=== PATIENT | female | born 1960 | race Caucasian/White ===

== ENCOUNTER 2020-07-01 18:09 | Inpatient (IN) | payer MEDICARE ==
[~2020-07-01] VITALS: Ht 162.6 cm; Wt 47.6 kg
[2020-07-01] MEDS ORDERED: OXYC20TA42 PO (19:24)
[2020-07-01] MEDS ORDERED: MORP60CA19 PO (19:24)
[2020-07-01] MEDS ORDERED: TIZA4TAB5 PO (19:24)
[2020-07-01] MEDS ORDERED: BUPR-53 PO (19:24)
[2020-07-01] MEDS ORDERED: DIAZ10TA4 PO (19:24)
[2020-07-01] MEDS ORDERED: TRAZ-257 PO (19:24)
[2020-07-01] MEDS ORDERED: POTASSIUM CHLORIDE 20 MEQ TAB.PRT.SR ONE (20:28)
[2020-07-01] MEDS ORDERED: POTASSIUM CHLORIDE 20 MEQ TAB.PRT.SR PO ONE (20:30)
--- NOTE | 2020-07-01 20:51 | NUR ---
Pt. admitted to MHU , under care of Dr. HERRERA Belongs List completed. MRSA SWAB DONE.
[2020-07-01 21:22] VITALS: BP 114/69
[2020-07-01] MEDS ORDERED: MAG HYDROX/AL HYDROX/SIMETH 30 ML LIQUID UDC PO PRN (21:45)
[2020-07-01] MEDS ORDERED: MAGNESIUM HYDROXIDE 30 ML LIQUID UDC PO PRN (21:45)
--- NOTE | 2020-07-01 22:15 | NUR ---
GPS: Admitted to unit earlier a 60 yr.old female under the care of / who was medically cleared in our E.R. Pt.is on a 72 hour hold for DTS/GD. Pt.is alert x1. Confused,disoriented and disorganized. Uncooperative,anxious,irritable at times during interview. Unable to state reason for her admission to the unit. Denies SI/wanting to hurt self when asked by staff. Refused to be interviewed more by staff. Pt's rights handbook and advisement given to pt. Unit rules explained. Oriented to unit/surroundings. Safe environment provided. Pt's sister aware of pt's admission to the unit. made aware. Will continue to monitor behavior.
[2020-07-01] MEDS: LORAZEPAM 1 MG TABLET PO PRN (22:40)
--- NOTE | 2020-07-01 22:40 | NUR ---
GPS: Pt.is anxious,restless ,agitated when approached and when being re-directed. Ambulating along the hallways naked. Confused,disoriented and disorganized. Poor insight to present situation. Ativan 1mg given PO. Will monitor effectiveness. Safe environment provided.
[2020-07-01] MEDS: TEMAZEPAM 7.5 MG CAPSULE PO PRN (23:55)
[2020-07-02] MEDS: LORAZEPAM 1 MG TABLET PO PRN ×3 (04:10→20:50)
--- NOTE | 2020-07-02 06:31 | NUR ---
GPS: Pt.slept for only 2 hrs.last night. Was anxious,restless at times,confused,disoriented and with mood swings. Frequent re-direction and re-assurance provided by staff. Continues to deny SI. Safe environment provided. Fall precautions observed.
[2020-07-02 07:30] VITALS: BP 126/72
[2020-07-02 07:37] LABS: CREATININE 1.2 mg/dL (0.6-1.3)
[2020-07-02 07:41] LABS: POTASSIUM 2.6 mmol/L (3.5-5.1)
--- NOTE | 2020-07-02 08:33 | NUR ---
RACHEL Firearms Report: Developmental Training Counselor completed and submitted a [employer] firearms report for 5150 grave disability certification. A copy of report has been placed in patient chart.
[2020-07-02] MEDS ORDERED: POTASSIUM CHLORIDE 20 MEQ TAB.PRT.SR PO ONE ×2 (09:45→15:00)
--- NOTE | 2020-07-02 10:41 | NUR ---
SW Initial Discharge Plan: Patient [place] [address] [place] [address]; ([phone]). Patient's sister Sidra ([phone]) is involved in patient's care. This SW gathered collateral from sister and she stated patient might need a nursing facility depending on how stable she will be. This SW will touch base with sister when it is closer to patient's discharge. This SW will work with the MD, treatment team, and family to help coordinate proper discharge.
--- NOTE | 2020-07-02 10:41 | NUR ---
SW Family Contact: Patient's sister Sidra ([phone]) is involved in patient's care. This SW gathered collateral from sister and she stated patient might need a nursing facility depending on how stable she will be. This SW will touch base with sister when it is closer to patient's discharge. Patient's sister requested for neuro consult. This SW advised charge nurse Brown.
--- NOTE | 2020-07-02 10:41 | NUR ---
Substance Abuse Intervention: Patient was provided with a brief substance abuse intervention and referred to [facility] ([phone]), [facility] ([phone]), and [facility] ([phone]).
--- NOTE | 2020-07-02 11:01 | NUR ---
Police Station: This SW contacted [place] [employer] ([phone]) and spoke with pneumatic tool operator [phone] who stated that "they cannot remove the guns from the house without patient being present". SW informed that patient is on a psychiatric hold and cannot return home if there are weapons at home and would need an officer to conduct a wellness check and remove the guns from the house. She expressed that an officer will contact this SW to further discuss.
--- NOTE | 2020-07-02 11:33 | NUR ---
Police Station: This SW a phone call from sergeant Ray from [place] [employer] ([phone]) who stated that they are unable to remove guns from the patient's house and would require a consent. requested for this SW to ask for patient's consent to go inside her house and remove guns.
--- NOTE | 2020-07-02 11:35 | NUR ---
SW Note: This SW met with patient and asked if she has guns at home. Patient became tearful and nodded her head. Patient did not further verbalize any information or give any consent for the officer to remove the guns.
--- NOTE | 2020-07-02 11:35 | NUR ---
Police Station: This SW contacted sergeant Ray from [place] [employer] ([phone]) and reported that patient became tearful and nodded her head when this SW asked if she has guns at home. Patient did not give consent to go inside her house to remove any possible guns. Addendum: 07/02/20 at 1137 by RACHEL DUMONT stated that he would have to further discuss with his team on what the next step will be. He stated that he will contact this SW.
--- NOTE | 2020-07-02 12:51 | NUR ---
Police Station: This SW received a phone call from sergeant Ray from [place] [employer] ([phone]) who stated that he went to patient's house and patient's son happened to be in the house. did wellness check and stated he found a safe with a combination code securing the weapons inside. Son stated he does not know the combination and only patient's brother Shant Brunson knows the combination and will be coming down from the [place] to remove the safe with the weapons and provide safe environment for pt if she were to return back home. stated they will be in contact with the brother.
[2020-07-02] MEDS: ASPIRIN 81 MG TAB.CHEW PO SCH (14:00)
[2020-07-02] MEDS ORDERED: PSYLLIUM SEED PACKET PO SCH ×2 (14:00→14:36)
[2020-07-02] MEDS: PSYLLIUM SEED PACKET PO SCH (14:37)
--- NOTE | 2020-07-02 15:00 | NUR ---
While assisted the patient in the bathroom, it was noted that patient has a significant rectal prolapse. Pt stood up and it was observed hanging from her anus (a size of a large apple). No bleeding was noted. The prolapsed part was able to be retracted after.
[2020-07-02] MEDS: Z GUARD REMEDY PASTE 57 GM TUBE TOP PRN (15:40)
[2020-07-02 16:07] VITALS: BP 130/73
[2020-07-02] MEDS ORDERED: LORAZEPAM 2 MG/1 ML VIAL IM ONE (16:15)
[2020-07-02] MEDS: OLANZAPINE 5 MG TABLET PO SCH (20:00)
[2020-07-02] MEDS: MORPHINE SULFATE SR 30 MG TABLET.SA PO SCH (20:23)
[2020-07-02] MEDS: ATORVASTATIN 20 MG TABLET PO SCH (20:23)
--- NOTE | 2020-07-02 20:25 | NUR ---
GPS: Pt.alert to self only. Confused,disoriented and disorganized. Has episodes of being selectively mute. Talking non-sensical. Refused bedtime meds.despite explanation of risks vs benefits x3. Safe environment provided. Observed to be disrobing self. Easily irritable when being re-directed. Labile mood. Will continue to monitor.
[2020-07-02 20:29] VITALS: BP 135/81
--- NOTE | 2020-07-02 20:50 | NUR ---
GPS: [place] someone screaming inside rm #[id number]. Found pt.standing next to her roommate and was trying to pull roommate up from bed. Pt.unable to explain what had happened due to confusion. Per roommate,pt.was making her get up so they can both get to the door. No injuries were sustained by both pt's. Both deny pain at this time. Pt.was re-directed and was removed from her room and away from roommate for safety. Pt.now sitting on a gerichair next to nurses station for close monitoring. Ativan 1mg PO given. Will monitor.
[2020-07-02] MEDS ORDERED: CLOZAPINE 100 MG TABLET PO SCH (21:00)
[2020-07-02] MEDS: TEMAZEPAM 7.5 MG CAPSULE PO PRN (22:49)
--- NOTE | 2020-07-03 06:19 | NUR ---
GPS: Pt.slept for 6.45 last night. Now awake in bed and still resting. Re-directed prn. Safe environment provided. Reality re-orientation provided prn.
[2020-07-03 07:30] VITALS: BP 134/78
[2020-07-03] MEDS ORDERED: GABAPENTIN 100 MG CAPSULE PO SCH (09:00)
[2020-07-03] MEDS ORDERED: CLOZAPINE 100 MG TABLET PO SCH (09:00)
[2020-07-03] MEDS: MORPHINE SULFATE SR 30 MG TABLET.SA PO SCH ×2 (10:45→20:16)
[2020-07-03] MEDS: DOCUSATE SODIUM 250 MG CAPSULE PO SCH (10:45)
[2020-07-03] MEDS: OLANZAPINE 5 MG TABLET PO SCH ×2 (10:45→17:44)
[2020-07-03] MEDS: ASPIRIN 81 MG TAB.CHEW PO SCH (10:49)
[2020-07-03] MEDS: PSYLLIUM SEED PACKET PO SCH (11:28)
[2020-07-03 11:29] LABS: CREATININE 0.9 mg/dL (0.6-1.3)
[2020-07-03] MEDS ORDERED: POTASSIUM CHLORIDE 20 MEQ TAB.PRT.SR PO ONE (11:30)
--- NOTE | 2020-07-03 11:30 | NUR ---
SW Family Contact: This SW received a phone call from patient's sister Sidra ([phone]) and this SW attempted to call back, however, this SW left a voicemail. Sidra wanted updates on patient's well-being.
[2020-07-03 11:44] LABS: POTASSIUM 2.7 mmol/L (3.5-5.1)
--- NOTE | 2020-07-03 14:11 | NUR ---
SW Family Contact: This SW spoke with patient's sister Sidra ([phone]) and wanted an update on patient's well being. This SW stated that patient has been disorganized and disoriented. Patient's sister requested to speak to Dr. Fisher. This SW notified Dr. Fisher.
--- NOTE | 2020-07-03 14:21 | NUR ---
SW Individual Note: sample shoe inspector and reworker met with patient for brief counseling and assessed for level of suicidality. sample shoe inspector and reworker assessed for suicidal thoughts, patient denied suicidal thoughts. Patient denies current SI. Patient reported that in the past couple of days he was hearing "voices that were telling me to hurt myself". Patient reported that sometimes the voices are "strong". This SW assessed for patient's safety. This SW actively listened and provided emotional support. Addendum: 07/03/20 at 1423 by RACHEL DUMONT Wrong patient
--- NOTE | 2020-07-03 14:25 | NUR ---
RACHEL Individual Note: odd bundle worker met with patient for brief counseling and assessed for level of suicidality. odd bundle worker assessed for suicidal thoughts, patient denied suicidal thoughts. Patient appeared disorganized and disoriented. Patient unable to have proper conversation due to confusion. SW unable to conduct therapy at this time.
[2020-07-03 16:53] VITALS: BP 131/89
[2020-07-03] MEDS: ENSURE ENLIVE (VAN) 240 ML LIQUID PO SCH (17:00)
[2020-07-03 19:59] VITALS: BP 155/87
[2020-07-03] MEDS: ATORVASTATIN 20 MG TABLET PO SCH (20:16)
[2020-07-03] MEDS: Z GUARD REMEDY PASTE 57 GM TUBE TOP PRN (20:17)
[2020-07-03 20:45] VITALS: BP 136/78
[2020-07-03] MEDS: TEMAZEPAM 7.5 MG CAPSULE PO PRN (22:31)
--- NOTE | 2020-07-04 06:16 | NUR ---
GPS: Remain confused and disoriented. need frequent redirection. Pt.slept for 4 hrs through the night after restoril 7.5 mg po given. Now awake in bed and still resting. Safe environment provided. Reality re-orientation provided. continue plan of care.
[2020-07-04 07:30] VITALS: BP 117/55
[2020-07-04] MEDS: ENSURE ENLIVE (VAN) 240 ML LIQUID PO SCH ×3 (08:24→16:33)
[2020-07-04] MEDS: OLANZAPINE 5 MG TABLET PO SCH ×3 (08:24→16:33)
[2020-07-04] MEDS: ASPIRIN 81 MG TAB.CHEW PO SCH (08:29)
[2020-07-04] MEDS: DOCUSATE SODIUM 250 MG CAPSULE PO SCH (08:29)
[2020-07-04] MEDS: MORPHINE SULFATE SR 30 MG TABLET.SA PO SCH ×2 (08:29→20:30)
[2020-07-04] MEDS: PSYLLIUM SEED PACKET PO SCH (11:00)
[2020-07-04] MEDS: NUTRISOURCE FIBER 4 GM PACKET PO SCH (16:34)
[2020-07-04 16:49] VITALS: BP 147/79
[2020-07-04 20:02] VITALS: BP 148/73
[2020-07-04] MEDS: ATORVASTATIN 20 MG TABLET PO SCH (20:30)
--- NOTE | 2020-07-05 02:53 | NUR ---
Received patient in her bed. Totally disoriented and talking nonsensical. Unable to have any meaningful conversation, continually swearing, fidgeting and taking cloths off. Patient refuses to take all of the routine medications or PRN medications. Damper Maker offered patient food , noticing that her intake for the day was 0%, but that too was refused. Patient has not slept so far and is in a herrera chair at the station being monitored for safety. Damper Maker will continue to encourage compliance and keep patient safe.
--- NOTE | 2020-07-05 06:19 | NUR ---
Patient refusing to sleep in the bed. Total sleep hours last night were 3.45. Patient was restless, confused and non compliant. Continuing to encourage and educate patient on the benefits of compliance and treatment.Reorientation provided during the night and offering of food and fluids which patient continues to decline. Will endorse to on coming shift.
[2020-07-05 07:30] VITALS: BP 149/82
--- NOTE | 2020-07-05 07:30 | NUR ---
Received patient on chair being monitored for safety. patient disoriented and speaking to self. unable to hold conversation. no signs of acute distress. will continue to monitor.
[2020-07-05 07:50] LABS: CREATININE 0.9 mg/dL (0.6-1.3)
[2020-07-05] MEDS: ASPIRIN 81 MG TAB.CHEW PO SCH (08:57)
[2020-07-05] MEDS: DOCUSATE SODIUM 250 MG CAPSULE PO SCH (08:57)
[2020-07-05] MEDS: ENSURE ENLIVE (VAN) 240 ML LIQUID PO SCH ×3 (08:57→16:41)
[2020-07-05] MEDS: OLANZAPINE 5 MG TABLET PO SCH ×2 (08:58→16:41)
[2020-07-05] MEDS: NUTRISOURCE FIBER 4 GM PACKET PO SCH ×3 (08:58→16:41)
[2020-07-05] MEDS: MORPHINE SULFATE SR 30 MG TABLET.SA PO SCH ×2 (08:58→20:07)
[2020-07-05] MEDS ORDERED: LORAZEPAM 2 MG/1 ML VIAL IM ONE (10:45)
[2020-07-05] MEDS ORDERED: OLANZAPINE 10 MG VIAL IM ONE (10:45)
--- NOTE | 2020-07-05 10:45 | NUR ---
Patient attempted to climb out of gerichair. Patient confused and talking to herself and cursing. Bookstore Manager tried redirecting patient but patient is nondirectable. Patient tried kicking staff when helping patient sit back down. Patient sat on the floor. Patient tried to swing at staff members. 4 person assist needed to get patient back to chair. Dr. Boothe contacted for orders. Dr. Boothe ordered one time dose of Zyprexa 0.5mg IM and one time dose of Ativan 0.5mg IM. Order carried out. Patient tolerating well. Will continue to monitor.
[2020-07-05] MEDS: PSYLLIUM SEED PACKET PO SCH (11:00)
--- NOTE | 2020-07-05 18:53 | NUR ---
Patient awake resting on chair. No signs of acute distress.Patient denies any pain/ discomfort at this time. After speaking with Dr. Boothe, patient agreed to take scheduled medications. Patient was able to have her lunch and dinner. Patient ambulated to the bathroom with assistance. Will endorse to incoming shift for continuity of care.
[2020-07-05] MEDS: ATORVASTATIN 20 MG TABLET PO SCH (20:05)
[2020-07-05 20:07] VITALS: BP 145/78
[2020-07-05] MEDS: LORAZEPAM 1 MG TABLET PO PRN (21:10)
[2020-07-05] MEDS: Z GUARD REMEDY PASTE 57 GM TUBE TOP PRN (21:57)
--- NOTE | 2020-07-06 05:30 | NUR ---
Received patient last night in the chair, awake and alert. Apologetic for her behavior the night before and pleasant . Patient was willing to take medications willingly and actually requested them. Total sleep hours were 8.00. This am , when rounding, mortgage underwriter noticed patient sitting on the edge of the bed. Withdrawn, paranoid and delusional. This mortgage underwriter attempted to engage patient in conversation but the patient stated " I do not trust you and I do not need your help ". This behavior is a complete shift from earlier on. Reassurance provided and mortgage underwriter will continue to monitor patient for any behavior escalation, labile mood , medication compliance and for safety.
[2020-07-06 07:30] VITALS: BP 118/81
--- NOTE | 2020-07-06 07:30 | NUR ---
RECEIVED PATIENT IN HER BED SITTING AT THE EDGE STATED WANTED TO USE THE BATHROOM SO I OFFERED TO HELP HER INTO THE BATHROOM ATTEMPTED TO ASSIST HER TO STAND UP BUT SHE REFUSED STATED THAT SHE WILL GO TO THE BATHROOM WHEN EVER SHE IS READY SEEMS ORIENTED KNOWS THAT SHE IS IN [facility] BUT STILL UNSURE OF WHAT SHE WANTS OR HOW I SHOULD HELP HER SO ENCOURAGED PATIENT TO RELAX AND LET ME KNOW WHAT AND HOWB TO HELP HER.
[2020-07-06] MEDS: OLANZAPINE 5 MG TABLET PO SCH ×2 (08:28→16:27)
[2020-07-06] MEDS: ASPIRIN 81 MG TAB.CHEW PO SCH (08:28)
[2020-07-06] MEDS: DOCUSATE SODIUM 250 MG CAPSULE PO SCH (08:28)
[2020-07-06] MEDS: MORPHINE SULFATE SR 30 MG TABLET.SA PO SCH ×2 (08:37→21:15)
[2020-07-06] MEDS: ENSURE ENLIVE (VAN) 240 ML LIQUID PO SCH ×3 (09:30→16:29)
[2020-07-06] MEDS: NUTRISOURCE FIBER 4 GM PACKET PO SCH ×3 (09:30→16:30)
--- NOTE | 2020-07-06 10:30 | NUR ---
JADEN FLORES DNP HERE TO SEE PATIENT WITH NEW ORDERS AND NOTED PATIENT IN ROOM DENIES DISCOMFORTS COMPLIANT WITH MEDICATIONS AND CARE WILL CONTINUE TO PROVIDE SAFE AND THERAPEUTIC ENVIRONMENT DENIES SI QAT THIS TIME
[2020-07-06] MEDS ORDERED: ONDANSETRON HCL 4 MG TABLET PO PRN (10:45)
[2020-07-06] MEDS: PSYLLIUM SEED PACKET PO SCH (11:00)
[2020-07-06 16:00] VITALS: BP 124/72
--- NOTE | 2020-07-06 18:00 | NUR ---
DIFFICULTY GIVING PATIENT HER MEDICATION ORDERED OFFERED TO HER 3 TIMES SHE JUST STARED AT ME VERY SUSPICIOUS WITHDRAWN PARANOID AND FINALLY TOOK THE MEDICATION GARGLING WITH THE WATER CHECKED HER MOUTH FOR CHEEKING WILL CONTINUE TO OBSERVE.
--- NOTE | 2020-07-06 18:45 | NUR ---
CALLED ME INTO HER ROOM AND STATED THAT SHE WANTS TO LEAV NOTIFIED HER THAT I WILL INFORM HER DOCTOR THEN SHE STATED THAT WE ALL HERE ARE FRIENDS WITH HER NEIBOUR WHOM SHE HATES SO MUCH WHEN ASKED WHERE SHE LIVES SHE STATED [facility] PATIENT REASSURED THAT SHE IS SAFE HERE.
[2020-07-06 20:08] VITALS: BP 132/77
[2020-07-06] MEDS: LORAZEPAM 1 MG TABLET PO PRN (21:15)
[2020-07-06] MEDS: ATORVASTATIN 20 MG TABLET PO SCH (21:16)
--- NOTE | 2020-07-07 05:19 | NUR ---
At the beginning of the shift, the patient was in bed and very paranoid stating that " Everybody out there is laughing at me. I know where you live and.. you won't get away with this". This fiction and nonfiction prose writer spent a good amount of time trying to reassure patient that she is safe and that we are all here to help her. Patient continued to be suspicious, yet trusted fiction and nonfiction prose writer to fulfill her many needs ,such as a new pair of pants, underwear, water, some lip balm etc.. After that she became very labile and begun crying. This fiction and nonfiction prose writer did have difficulty trying to get the patient to take her prescribed medications, and she required plenty of encouragement, the patient did finally agreed. Total sleep hours were 7.00 . Plan is to continue to reorient and reassure the patient as needed, monitor her for safety and labile behavior, plus encourage compliance. There is no acute distress noted at this time.
[2020-07-07 07:21] LABS: BASOPHILS # (AUTO) 0.1 K/uL (0.0-8.0); BASOPHILS % (AUTO) 0.7 % (0.0-2.0); EOSINOPHILS # (AUTO) 0.1 K/uL (0.0-0.7); EOSINOPHILS % (AUTO) 0.5 % (0.0-7.0); HEMATOCRIT 40.2 % (31.2-41.9); HEMOGLOBIN 13.7 g/dL (10.9-14.3); LYMPHOCYTES # (AUTO) 3.1 K/uL (20.0-40.0); LYMPHOCYTES % (AUTO) 29.4 % (20.5-51.5); MEAN CORPUSCULAR HGB CONC 34 g/dL (32.3-35.6); MEAN CORPUSCULAR VOLUME 94.2 fL (75.5-95.3); MONOCYTES # (AUTO) 0.7 K/uL (2.0-10.0); MONOCYTES % (AUTO) 6.9 % (0.0-11.0); NEUTROPHILS # (AUTO) 6.5 K/uL (1.8-8.9); NEUTROPHILS % (AUTO) 62.5 % (38.5-71.5); PLATELET COUNT (AUTO) 360 K/uL (179-408); RED BLOOD CELL COUNT(AUTO) 4.27 MIL/uL (3.63-4.92); WHITE BLOOD COUNT (AUTO) 10.5 K/uL (3.8-11.8)
[2020-07-07 07:30] VITALS: BP 143/89
[2020-07-07 07:34] LABS: CREATININE 0.7 mg/dL (0.6-1.3); MAGNESIUM 2.3 mg/dL (1.8-2.4); PHOSPHOROUS 3.5 mg/dL (2.5-4.9)
--- NOTE | 2020-07-07 08:37 | NUR ---
SW Coordination of Care: This SW sent patient's clinicals to Bryant from [facility] ([phone]) for placement option. This SW faxed patient's clinicals. This SW sent H & P, progress notes, and medication list.
[2020-07-07] MEDS: NUTRISOURCE FIBER 4 GM PACKET PO SCH ×3 (09:00→17:00)
[2020-07-07] MEDS: MORPHINE SULFATE SR 30 MG TABLET.SA PO SCH ×3 (09:00→20:41)
[2020-07-07] MEDS: DOCUSATE SODIUM 250 MG CAPSULE PO SCH ×2 (09:00→12:01)
[2020-07-07] MEDS: ASPIRIN 81 MG TAB.CHEW PO SCH ×2 (09:00→12:01)
[2020-07-07] MEDS: OLANZAPINE 5 MG TABLET PO SCH ×4 (09:00→20:35)
[2020-07-07] MEDS: ENSURE ENLIVE (VAN) 240 ML LIQUID PO SCH ×4 (09:00→17:24)
[2020-07-07] MEDS: POTASSIUM CHLORIDE 10 MEQ TAB.PRT.SR PO SCH ×4 (09:30→17:40)
--- NOTE | 2020-07-07 10:55 | NUR ---
Court Hearing: Patient's court hearing is today and it was upheld for GD and danger to self.
[2020-07-07] MEDS: PSYLLIUM SEED PACKET PO SCH (11:00)
--- NOTE | 2020-07-07 11:02 | NUR ---
SNF Contact: This SW received a phone call from Bryant from [facility] ([phone]) who stated patient is accepted.
--- NOTE | 2020-07-07 13:38 | NUR ---
SW Individual Note: rescue worker met with patient for brief counseling and assessed for level of suicidality. rescue worker assessed for suicidal thoughts, patient denied suicidal thoughts. Patient appeared very paranoid and delusional. She was standing near her bedside and unable to maintain proper eye contact while this SW was conducting therapy. She was just stating "I know you.. you were the one that called her". Patient presented with labile mood and unable to have a proper conversation at this time.
[2020-07-07 15:23] VITALS: BP 134/83
[2020-07-07 20:01] VITALS: BP 116/76
[2020-07-07] MEDS: ATORVASTATIN 20 MG TABLET PO SCH (20:35)
[2020-07-08] MEDS: TEMAZEPAM 7.5 MG CAPSULE PO PRN (01:12)
[2020-07-08 07:30] VITALS: BP 115/84
[2020-07-08] MEDS: DOCUSATE SODIUM 250 MG CAPSULE PO SCH (09:00)
[2020-07-08] MEDS: MORPHINE SULFATE SR 30 MG TABLET.SA PO SCH ×3 (09:00→20:09)
[2020-07-08] MEDS: ASPIRIN 81 MG TAB.CHEW PO SCH ×2 (09:00→10:25)
[2020-07-08] MEDS: NUTRISOURCE FIBER 4 GM PACKET PO SCH ×3 (09:00→16:58)
[2020-07-08] MEDS: ENSURE ENLIVE (VAN) 240 ML LIQUID PO SCH ×4 (09:00→16:57)
[2020-07-08] MEDS: OLANZAPINE 5 MG TABLET PO SCH ×3 (09:00→20:08)
[2020-07-08] MEDS: PSYLLIUM SEED PACKET PO SCH (11:00)
--- NOTE | 2020-07-08 12:17 | NUR ---
RACHEL Family Contact: This SW spoke with patient's sister Sidra ([phone]) and stated patient is accepted at [facility]. Sidra would want a neuro consult. This SW advised Dr. Fisher. She would want to speak to doctor. This SW advised doctor Phillip to call her. Addendum: 07/08/20 at 1218 by RACHEL DUMONT This RACHEL notified charge nurse Delfin for Neuro Consult
--- NOTE | 2020-07-08 12:40 | NUR ---
SW Family Visit: This SW met with patient's daughter Barbara ([phone]) and discussed discharge planning. This SW advised that patient is accepted at [facility] and she was agreeable with this plan. Barbara would prefer to be the primary contact instead of sister Sidra.
--- NOTE | 2020-07-08 12:46 | NUR ---
SW Family Contact: This SW spoke with patient's sister Sidra ([phone]) and stated Barbara patient's daughter ([phone]) would want to be the primary contact and have the doctor contact her instead. Sidra was agreeable with this. This SW reported that Barbara agreed with the nursing [facility].
[2020-07-08 14:16] LABS: *BILIRUBIN,URIN NEGATIVE (NEGATIVE); *BLOOD, URINE NEGATIVE (NEGATIVE); *COLOR,URINE YELLOW (YELLOW); *KETONES,URINE NEGATIVE (NEGATIVE); *UROBILINOGEN,URINE 0.2 E.U./dl (NORMAL); LEUKOCYTE ESTERASE ,URINE 1+ (NEGATIVE); NITRITE, URINE NEGATIVE (NEGATIVE); PH,URINE 8.5 (5.0-8.0); UGLUCOSE NEGATIVE (NEGATIVE)
[2020-07-08 14:23] LABS: *CLARITY,URINE HAZY (CLEAR); RBC,URINE 0-3 /HPF (0-3)
[2020-07-08 14:24] LABS: BACTERIA,URINE FEW /HPF (NONE SEEN); SQUAMOUS EPITHELIAL CELL,UR MODERATE /HPF (NONE SEEN); WBC,URINE 20-50 /HPF (0-3)
[2020-07-08 15:25] VITALS: BP 128/63
[2020-07-08] MEDS: AMOXICILLIN-CLAVUL 500-125MG TABLET PO SCH (20:08)
[2020-07-08] MEDS: ATORVASTATIN 20 MG TABLET PO SCH (20:08)
[2020-07-08 21:41] VITALS: BP 132/75
[2020-07-09 07:30] VITALS: BP 122/73
[2020-07-09] MEDS: DOCUSATE SODIUM 250 MG CAPSULE PO SCH (09:00)
[2020-07-09] MEDS: ASPIRIN 81 MG TAB.CHEW PO SCH (09:00)
[2020-07-09] MEDS: ENSURE ENLIVE (VAN) 240 ML LIQUID PO SCH ×3 (09:00→18:20)
[2020-07-09] MEDS: MORPHINE SULFATE SR 30 MG TABLET.SA PO SCH ×2 (09:00→20:05)
[2020-07-09] MEDS: NUTRISOURCE FIBER 4 GM PACKET PO SCH ×3 (09:00→17:00)
[2020-07-09] MEDS: AMOXICILLIN-CLAVUL 500-125MG TABLET PO SCH ×2 (09:01→20:04)
[2020-07-09] MEDS: OLANZAPINE 5 MG TABLET PO SCH ×2 (09:01→20:04)
[2020-07-09] MEDS: PSYLLIUM SEED PACKET PO SCH (10:50)
[2020-07-09] MEDS: LORAZEPAM 1 MG TABLET PO PRN (13:11)
[2020-07-09 16:00] VITALS: BP 136/88
--- NOTE | 2020-07-09 18:24 | NUR ---
Ms Contin 30 mg was given earlier in the shift. when pulling out the medications, accidently pulled two tablets instead of one. One tab was given to the patient. the other tablet was wasted with the presence of second RN, Randy lopez. Discrepancy was created in the pixes and resolved after.
[2020-07-09] MEDS: ACETAMINOPHEN 325 MG TABLET PO PRN (18:56)
--- NOTE | 2020-07-09 19:18 | NUR ---
Pt spent all the time in her room. Pt was encouraged to come out, but she declined. No episodes of disrobing. Pt denies S.I. Pt has paranoia, stating that someone "played a trick on her." Pt states she cannot remember what happened to her and how she got here. Pt was anxious and more confused but appeared to be calmer and more oriented after taking an Ativan. Pt had a visit with her daughter. No distress noted.
[2020-07-09 20:01] VITALS: BP 133/84
[2020-07-09] MEDS: ATORVASTATIN 20 MG TABLET PO SCH (20:04)
[2020-07-10 07:30] VITALS: BP 131/86
[2020-07-10] MEDS: NUTRISOURCE FIBER 4 GM PACKET PO SCH ×3 (09:00→17:40)
[2020-07-10] MEDS: ASPIRIN 81 MG TAB.CHEW PO SCH (09:41)
[2020-07-10] MEDS: MORPHINE SULFATE SR 30 MG TABLET.SA PO SCH ×2 (09:41→20:42)
[2020-07-10] MEDS: AMOXICILLIN-CLAVUL 500-125MG TABLET PO SCH ×2 (09:42→20:42)
[2020-07-10] MEDS: PSYLLIUM SEED PACKET PO SCH (09:43)
[2020-07-10] MEDS: DOCUSATE SODIUM 250 MG CAPSULE PO SCH (09:43)
[2020-07-10] MEDS: OLANZAPINE 5 MG TABLET PO SCH ×2 (09:43→20:42)
[2020-07-10] MEDS: ENSURE ENLIVE (VAN) 240 ML LIQUID PO SCH ×3 (09:45→17:40)
--- NOTE | 2020-07-10 12:06 | NUR ---
called and spoke with patient daughter lucho [phone], regarding Neurology update and Ct scan result and wanted to talk with Dr. burch. Called and ask him to call the daughter, dr. burch acknowledge, will continue follow up
--- NOTE | 2020-07-10 12:09 | NUR ---
Gps/Street Light Servicer Helper -Stayed in the activity room, , in her herrera-chair anxious, restless, fidgety,
--- NOTE | 2020-07-10 14:52 | NUR ---
SW Individual Note: fruit or nut farmworker met with patient for brief counseling and assessed for level of suicidality. fruit or nut farmworker assessed for suicidal thoughts, patient denied suicidal thoughts. Patient appeared paranoid and confused. She kept asking this SW where she is. This SW stated she is at the hospital and helped her recognize her condition, however, patient is forgetful. This SW educated pt and actively listened and helped her calm down.
[2020-07-10 16:00] VITALS: BP 113/91
--- NOTE | 2020-07-10 16:07 | NUR ---
Received a call from Dr. burch with new order to rule out TIA, Carotid duplex UTS , Echocardiogram, and MRI without contrast was ordered, patient and family aware, transportation was set , spoke with o benji ([phone]) transpo was set [facility] ([phone], warehouse representative is aware to arrange sitter
[2020-07-10] MEDS: LORAZEPAM 1 MG TABLET PO PRN (16:43)
--- NOTE | 2020-07-10 18:48 | NUR ---
Gps/Employee Communications Coordinator- Patient was well informed she's scheduled to have MRI of head w/o contrast, wants to find out result of the CT head , why they have to plan for MRI of head. Refused to sign consent, claimed she needed to read them all, but she does not have eye glasses. Verbalized being frustrated with her present condition, but she's trying to be positive. Stayed in the activity room during part of her dinner, interacting with her peers.. Dr Fisher was in to see and talked to patient.
[2020-07-10 19:54] VITALS: BP 139/65
[2020-07-10] MEDS: ATORVASTATIN 20 MG TABLET PO SCH (20:42)
[2020-07-10] MEDS: TEMAZEPAM 7.5 MG CAPSULE PO PRN (21:29)
--- NOTE | 2020-07-11 05:37 | NUR ---
Received patient last night walking in the hallway, gait steady , going into the day room. Control Systems Technician was able to engage in meaningful conversation with the patient who was calm and oriented x4. Patient verbalized understanding of the MRI that is scheduled for today and is willing to go. Control Systems Technician had no difficulty with the patient taking her medications and no delusions or paranoia noted during the shift. Continuing to monitor patient for labile moods, paranoid ideas and safety. Sleep hours were 8.00. No acute behavioral issues at this time.
[2020-07-11 07:30] VITALS: BP 121/83
[2020-07-11] MEDS: ASPIRIN 81 MG TAB.CHEW PO SCH (08:20)
[2020-07-11] MEDS: DOCUSATE SODIUM 250 MG CAPSULE PO SCH (08:20)
[2020-07-11] MEDS: AMOXICILLIN-CLAVUL 500-125MG TABLET PO SCH ×2 (08:20→20:13)
[2020-07-11] MEDS: MORPHINE SULFATE SR 30 MG TABLET.SA PO SCH ×2 (08:21→20:14)
[2020-07-11] MEDS: ENSURE ENLIVE (VAN) 240 ML LIQUID PO SCH ×3 (08:22→17:00)
[2020-07-11] MEDS: NUTRISOURCE FIBER 4 GM PACKET PO SCH ×3 (08:22→17:00)
[2020-07-11] MEDS: OLANZAPINE 5 MG TABLET PO SCH ×3 (08:22→21:00)
--- NOTE | 2020-07-11 10:00 | NUR ---
Gps/Urgent Care Nurse Practitioner-Ambulance in to transport patient to [facility] for MRI of the brain with out contrast. Patient anxious hesitancy to go , tachycardic at 125 and above. Called Quentin (Naman Sullivan Coordinator to informed, delayed r/t to present situation. Patient's daughter Barbara was called was able to talked to patient. Barbara (daughter)is the Primary backshoe person , and be the one to be called first , not Sidra (sister of patient) .
--- NOTE | 2020-07-11 10:20 | NUR ---
Gps/Vehicle Glass Technician- Patient agreed to go for the MRI after talking to her daughter Barbara , had calmed down ,left the [facility] via ambulance accompanied by Nataliya COLBY in the ambulance.
[2020-07-11] MEDS: PSYLLIUM SEED PACKET PO SCH (11:00)
[2020-07-11] MEDS: LORAZEPAM 1 MG TABLET PO PRN (11:49)
--- NOTE | 2020-07-11 11:49 | NUR ---
Gps/Sales Review Clerk- Back from [facility] via ambulance from MRI of the brain., anxious, confused, restless, agitated. Offered 1tivan 1 mg po, with craberry juice as requested. Patient slumped on to the from, refusing to get up, assisted to herrera-chair for her safety, kept infront of the Nurses station, monitor needs, reassured.
[2020-07-11 15:02] VITALS: BP 120/72
[2020-07-11] MEDS: ATORVASTATIN 20 MG TABLET PO SCH (20:14)
[2020-07-11 21:12] VITALS: BP 124/87
[2020-07-11] MEDS: TEMAZEPAM 7.5 MG CAPSULE PO PRN (21:18)
--- NOTE | 2020-07-12 05:42 | NUR ---
Patient slept 5.45 hours after receiving a sleeping pill per request. Patient was edgy last night, on the boarder of paranoid. Multiple requests and questions. Drill Sharpener Operator provided reassurance of the situation with an emphasis on the reality of her surroundings. No acute behavioral issues, will continue to monitor pain and for safety.
[2020-07-12 07:30] VITALS: BP 127/85
[2020-07-12] MEDS: OLANZAPINE 5 MG TABLET PO SCH ×2 (09:15→20:03)
[2020-07-12] MEDS: ASPIRIN 81 MG TAB.CHEW PO SCH (09:15)
[2020-07-12] MEDS: DOCUSATE SODIUM 250 MG CAPSULE PO SCH (09:15)
[2020-07-12] MEDS: AMOXICILLIN-CLAVUL 500-125MG TABLET PO SCH ×2 (09:15→20:05)
[2020-07-12] MEDS: ENSURE ENLIVE (VAN) 240 ML LIQUID PO SCH ×3 (09:16→16:06)
[2020-07-12] MEDS: NUTRISOURCE FIBER 4 GM PACKET PO SCH ×3 (09:16→16:06)
[2020-07-12] MEDS: MORPHINE SULFATE SR 30 MG TABLET.SA PO SCH ×2 (09:16→20:04)
[2020-07-12] MEDS: PSYLLIUM SEED PACKET PO SCH (11:00)
[2020-07-12 15:48] VITALS: BP 129/70
[2020-07-12] MEDS: LORAZEPAM 1 MG TABLET PO PRN (18:36)
[2020-07-12] MEDS: ATORVASTATIN 20 MG TABLET PO SCH (20:04)
[2020-07-13 07:30] VITALS: BP 135/82
[2020-07-13] MEDS: AMOXICILLIN-CLAVUL 500-125MG TABLET PO SCH (08:34)
[2020-07-13] MEDS: ENSURE ENLIVE (VAN) 240 ML LIQUID PO SCH ×3 (08:39→16:21)
[2020-07-13] MEDS: NUTRISOURCE FIBER 4 GM PACKET PO SCH ×3 (08:40→16:22)
[2020-07-13] MEDS: DOCUSATE SODIUM 250 MG CAPSULE PO SCH (09:32)
[2020-07-13] MEDS: ASPIRIN 81 MG TAB.CHEW PO SCH (09:32)
[2020-07-13] MEDS: MORPHINE SULFATE SR 30 MG TABLET.SA PO SCH ×2 (09:33→20:26)
[2020-07-13] MEDS: OLANZAPINE 5 MG TABLET PO SCH ×2 (09:33→20:26)
[2020-07-13] MEDS: PSYLLIUM SEED PACKET PO SCH (11:00)
[2020-07-13 19:56] VITALS: BP 136/78
[2020-07-13] MEDS: ATORVASTATIN 20 MG TABLET PO SCH (20:26)
[2020-07-14 07:30] VITALS: BP 140/89
[2020-07-14] MEDS: ASPIRIN 81 MG TAB.CHEW PO SCH (08:21)
[2020-07-14] MEDS: DOCUSATE SODIUM 250 MG CAPSULE PO SCH (08:21)
[2020-07-14] MEDS: MORPHINE SULFATE SR 30 MG TABLET.SA PO SCH ×2 (08:22→20:38)
[2020-07-14] MEDS: OLANZAPINE 5 MG TABLET PO SCH ×2 (08:22→20:39)
[2020-07-14] MEDS: ENSURE ENLIVE (VAN) 240 ML LIQUID PO SCH ×3 (08:22→16:08)
[2020-07-14] MEDS: NUTRISOURCE FIBER 4 GM PACKET PO SCH ×3 (08:23→16:09)
[2020-07-14] MEDS: Z GUARD REMEDY PASTE 57 GM TUBE TOP PRN (10:09)
[2020-07-14] MEDS: PSYLLIUM SEED PACKET PO SCH (10:54)
--- NOTE | 2020-07-14 11:06 | NUR ---
SW Family Contact: This SW received a call from patient's daughter Barbara ([phone]) who wanted an update on patient's well-being. This SW shared how patient has been doing. She requested for more information on patient's MRI result and this SW transferred to nursing.
[2020-07-14 15:36] VITALS: BP 104/71
[2020-07-14 20:00] VITALS: BP 139/85
[2020-07-14] MEDS: ATORVASTATIN 20 MG TABLET PO SCH (20:39)
[2020-07-14] MEDS: TEMAZEPAM 7.5 MG CAPSULE PO PRN (22:34)
--- NOTE | 2020-07-15 01:28 | NUR ---
RECEIVED PATIENT IN HER ROOM APPEARS CALM BUT MOOD IS LABILE. LATER NOTED FIDGETING. SAT UP IN BED,GOT UP AND WALKED BACK AND FORTH IN HER ROOM FOR A WHILE. SHE HOWEVER TOOK HER MEDICATIONS AND LATER REQUESTED FOR A SLEEPING TABLET.HOWEVER DENIES AH/VH. VISUAL CHECKS MADE ON HER FOR SAFETY. WILL CONTINUE TO MONITOR.
--- NOTE | 2020-07-15 06:49 | NUR ---
SHE SLEPT WELL FOR 8HOURS
[2020-07-15 07:30] VITALS: BP 136/88
[2020-07-15] MEDS: ASPIRIN 81 MG TAB.CHEW PO SCH (08:43)
[2020-07-15] MEDS: MORPHINE SULFATE SR 30 MG TABLET.SA PO SCH ×2 (08:43→20:02)
[2020-07-15] MEDS: DOCUSATE SODIUM 250 MG CAPSULE PO SCH (08:43)
[2020-07-15] MEDS: OLANZAPINE 5 MG TABLET PO SCH ×2 (08:43→20:02)
[2020-07-15] MEDS: ENSURE ENLIVE (VAN) 240 ML LIQUID PO SCH ×3 (08:44→16:24)
[2020-07-15] MEDS: NUTRISOURCE FIBER 4 GM PACKET PO SCH ×3 (08:44→16:24)
--- NOTE | 2020-07-15 11:00 | NUR ---
SW Family Contact: This SW spoke with patient's sister Sidra ([phone]) and stated that patient does not have a discharge plan yet and once this SW has information she will let her know. This SW explained to her multiple times that patient is accepted at [facility].
[2020-07-15] MEDS: PSYLLIUM SEED PACKET PO SCH (11:18)
--- NOTE | 2020-07-15 13:03 | NUR ---
SW Family Contact: This SW spoke with patient's sister Sidra ([phone]) and stated the concern that staff is having that she keeps mentioning to staff that she has no information. This SW explained patient's treatment and discharge plan multiple times and advised to contact this SW. This SW stated she will contact her when pt is stable and ready for dc.
--- NOTE | 2020-07-15 13:44 | NUR ---
Individual Therapy: spray worker met with patient for brief counseling to help address patient's presenting problem SI. Patient denies SI. However, patient does appear paranoid and delusional stating "they are tricking us and I do not trust you". Patient unable to have a meaningful conversation due to paranoia.
--- NOTE | 2020-07-15 15:04 | NUR ---
SW Family Contact: This SW spoke with patient's sister Sidra ([phone]) and stated that patient's potential discharge day is Tuesday07/18/20 and she will transition to [facility]. She was agreeable with this and will pass the message to daughter Barbara ([phone]).
[2020-07-15 15:23] VITALS: BP 131/79
[2020-07-15] MEDS: ATORVASTATIN 20 MG TABLET PO SCH (20:02)
[2020-07-15 20:20] VITALS: BP 110/75
--- NOTE | 2020-07-16 05:56 | NUR ---
GPS: Pt.slept for 7.30 last night. No new behavioral problems exhibited. Less anxious and irritable when approached. Denies SI. Safe environment provided. Will continue to monitor.
--- NOTE | 2020-07-16 07:10 | NUR ---
Patient report received from power and recovery shift engineer. Patient seen resting in bed. Alert and oriented x 2. Patient is cooperative. Feeling anxious. Patient stated shes confused, wanted to know why she was here. Able to reorient. Patient wanted to rest. Bed in low and locked position. Safety precautions in place.
[2020-07-16 07:30] VITALS: BP 129/88
[2020-07-16] MEDS: OLANZAPINE 5 MG TABLET PO SCH ×2 (08:07→20:02)
[2020-07-16] MEDS: DOCUSATE SODIUM 250 MG CAPSULE PO SCH (08:07)
[2020-07-16] MEDS: ASPIRIN 81 MG TAB.CHEW PO SCH (08:07)
[2020-07-16] MEDS: MORPHINE SULFATE SR 30 MG TABLET.SA PO SCH ×2 (08:08→20:03)
[2020-07-16] MEDS: PSYLLIUM SEED PACKET PO SCH (08:09)
[2020-07-16] MEDS: NUTRISOURCE FIBER 4 GM PACKET PO SCH ×3 (08:17→17:00)
[2020-07-16] MEDS: ENSURE ENLIVE (VAN) 240 ML LIQUID PO SCH ×3 (09:00→17:22)
[2020-07-16 16:43] VITALS: BP 143/91
--- NOTE | 2020-07-16 18:08 | NUR ---
Patient was less anxious throughout the day. She has been compliant with her medications. More calm and cooperative. Patient is now on voluntary status. Denies SI and HI at this time. Patient interactive with group. No reports of pain or shortness of breath at this time. Able to take a shower. Pt remains confused.
[2020-07-16] MEDS: ATORVASTATIN 20 MG TABLET PO SCH (20:02)
[2020-07-16 20:27] VITALS: BP 142/77
--- NOTE | 2020-07-17 06:39 | NUR ---
GPS: Pt.slept for 6.30 last night. Less anxious at this time. Re-directed prn. Fall precautions observed.
[2020-07-17 07:30] VITALS: BP 150/79
[2020-07-17] MEDS: OLANZAPINE 5 MG TABLET PO SCH ×2 (08:13→20:02)
[2020-07-17] MEDS: DOCUSATE SODIUM 250 MG CAPSULE PO SCH (08:13)
[2020-07-17] MEDS: PSYLLIUM SEED PACKET PO SCH (08:14)
[2020-07-17] MEDS: ASPIRIN 81 MG TAB.CHEW PO SCH (08:14)
[2020-07-17] MEDS: MORPHINE SULFATE SR 30 MG TABLET.SA PO SCH ×2 (08:14→20:02)
[2020-07-17] MEDS: ENSURE ENLIVE (VAN) 240 ML LIQUID PO SCH ×3 (08:21→17:35)
[2020-07-17] MEDS: NUTRISOURCE FIBER 4 GM PACKET PO SCH ×3 (08:21→17:35)
[2020-07-17 16:57] VITALS: BP 130/86
[2020-07-17] MEDS: ACETAMINOPHEN 325 MG TABLET PO PRN (18:02)
[2020-07-17 19:56] VITALS: BP 145/74
[2020-07-17] MEDS: ATORVASTATIN 20 MG TABLET PO SCH (20:02)
[2020-07-17] MEDS: TEMAZEPAM 7.5 MG CAPSULE PO PRN (21:31)
--- NOTE | 2020-07-18 06:38 | NUR ---
GPS: Anxious,easily irritable at this time but listens to re-direction. Slept for 7 hrs.last night. Safe environment provided. Will continue to monitor.
[2020-07-18 07:30] VITALS: BP 134/86
--- NOTE | 2020-07-18 08:03 | NUR ---
Discharge Note: [facility] [place] [address] ([phone]) via ambulance transportation at 1PM. Environmental Marketing Representative spoke with Bryant, Director Specialty at [facility] ([phone]), and he confirmed that patient will be accepted at their facility today. Patients sister Sidra ([phone]) and daughter Barbara ([phone]) is aware and agreeable with discharge plan. Patient is alert and oriented x3. Patient is not able to plan for self-care at this time but is willing to accept care provided for her at the facility. Patient denies suicidal or homicidal ideation. Patient is aware and agreeable with discharge plans. Patient presents with appropriate mood and congruent affect. Patient will follow-up with (Psychiatrist) Dr. Fisher and (Veterinarian Poultry) Dr. Garcia at [facility]. Patient was provided referrals to the following substance abuse programs for substance abuse: [facility] ([phone]); [facility] [address] [place] [address] ([phone]); [place] [id number] [facility] [address] ([phone]); [facility] ([phone]); [facility] ([phone]); [facility] ([phone]); [facility] ([phone]). Patient presented with euthymic mood and congruent affect.
[2020-07-18] MEDS: DOCUSATE SODIUM 250 MG CAPSULE PO SCH (08:11)
[2020-07-18] MEDS: ASPIRIN 81 MG TAB.CHEW PO SCH (08:11)
[2020-07-18] MEDS: OLANZAPINE 5 MG TABLET PO SCH (08:11)
[2020-07-18] MEDS: MORPHINE SULFATE SR 30 MG TABLET.SA PO SCH (08:12)
[2020-07-18] MEDS: ENSURE ENLIVE (VAN) 240 ML LIQUID PO SCH ×2 (08:12→13:00)
[2020-07-18] MEDS: NUTRISOURCE FIBER 4 GM PACKET PO SCH ×2 (08:18→13:00)
[2020-07-18] MEDS: PSYLLIUM SEED PACKET PO SCH (11:21)
--- NOTE | 2020-07-18 14:57 | NUR ---
DISCHARGE NOTES PATIENT ON VOLUNTARY AT THIS TIME, PATIENT AOX3, AMBULATORY DENIES SI AND HI, SOMEWHAT PARANOID AND ANXIOUS ABOUT HER DISCHARGE, PATIENT EDUCATED ABOUT HER DISCHARGE PLANNING TO [facility] AND HOME MEDICATION , PATIENT ANXIOUS BUT REDIRECTABLE, MONITORED [id number] NO SIGN OF DISTRESS, REPORTS GIVEN TO EMT AND [facility] STAFF, FAMILY AND MD AWARE OF THE DISCHARGE
== END 2020-07-18 15:01 | DRG 885 ==
LOC: EDBD 18:11 → ER 18:11 → GPS 20:35
PROVIDERS: ADMIT Psychiatry & Neurology Psychiatry; ATTEND Nurse Practitioner Acute Care
DX: F25.9 Schizoaffective disorder, unspecified (principal); E43 Unspecified severe protein-calorie malnutrition; N39.0 Urinary tract infection, site not specified; R45.851 Suicidal ideations; R64 Cachexia; Z68.1 Body mass index [BMI] 19.9 or less, adult; G89.4 Chronic pain syndrome; E87.6 Hypokalemia; K62.3 Rectal prolapse; Z88.0 Allergy status to penicillin; Z88.2 Allergy status to sulfonamides; E78.5 Hyperlipidemia, unspecified; F41.9 Anxiety disorder, unspecified; K59.00 Constipation, unspecified; Z20.822 Contact with and (suspected) exposure to COVID-19; F32.9 Major depressive disorder, single episode, unspecified; R63.0 Anorexia; F29 Unspecified psychosis not due to a substance or known physiological condition
CPT/HCPCS: 36415; 70450; 70551; 71045; 83735; 84100; 84132; 85025; 87086; 93005; 93880; 95819; A4663; J2060; J2358